=== PATIENT | male | born 1965 | race Caucasian/White ===

== ENCOUNTER 2025-03-16 14:32 | Emergency (ER) | payer OTHER ==
[~2025-03-16] VITALS: Ht 170.2 cm; Wt 77.1 kg
[2025-03-16 14:41] VITALS: TEMP 97.9
[2025-03-16 15:14] LABS: PLATELET COUNT (AUTO) 131 K/uL (150-450); RED BLOOD CELL COUNT(AUTO) 4.76 MIL/uL (4.5-6.0); RED CELL DISTRIBUTION WIDTH 13.5 % (11.5-15.0); WHITE BLOOD COUNT (AUTO) 9.7 K/uL (4.3-11.0)
[2025-03-16 15:22] LABS: CALCIUM, SERUM 8.7 mg/dL (8.5-10.1); CREATININE 0.9 mg/dL (0.6-1.3); SODIUM SERUM 139 mmol/L (136-145); UREA NITROGEN, BLOOD 21 mg/dL (7-18)
[2025-03-16] MEDS ORDERED: ASPIRIN 325 MG TABLET ONE (15:36)
[2025-03-16] MEDS ORDERED: NITROGLYCERIN 0.4 MG/TAB BOTTLE ONE (15:36)
[2025-03-16] MEDS: ASPIRIN 325 MG TABLET PO ONE (15:38)
[2025-03-16] MEDS: NITROGLYCERIN 0.4 MG/TAB BOTTLE SL ONE (15:39)
[2025-03-16 18:05] VITALS: BP 115/80; O2SAT 97
== END 2025-03-16 18:03 | disposition home or self-care (01) ==
LOC: ER 14:32
DX: R07.89 Other chest pain (principal); I10 Essential (primary) hypertension; E11.65 Type 2 diabetes mellitus with hyperglycemia
CPT/HCPCS: 36415; 71045-TC; 80048-TC; 84484-TC; 85025-TC; 85378-TC